=== PATIENT | male | born 1975 | race Two or more races ===

== ENCOUNTER 2018-01-16 23:19 | Inpatient (IN) | payer SELFPAY ==
[~2018-01-16] VITALS: Ht 182.9 cm; Wt 83.9 kg
[2018-01-17] MEDS ORDERED: ASPIRIN 325 MG TABLET PO ONE
[2018-01-17] MEDS ORDERED: NITROGLYCERIN 0.4 MG/TAB BOTTLE SL ONE ×2 (00:13)
[2018-01-17] MEDS ORDERED: ACETAMINOPHEN 325 MG TABLET ONE ×2 (00:13→00:36)
[2018-01-17] MEDS ORDERED: LORAZEPAM 2 MG/1 ML VIAL IV ONE ×2 (00:15→01:15)
--- NOTE | 2018-01-17 00:17 | NUR ---
PT REPORTED BEING FREE OF CHEST PAIN AFTER FIRST ROUND OF NITRO
[2018-01-17] MEDS ORDERED: ASPIRIN 325 MG TABLET ONE (00:18)
[2018-01-17] MEDS ORDERED: NITROGLYCERIN OINT 1 GM PACKET TP ONE (00:21)
[2018-01-17] MEDS ORDERED: LORAZEPAM 2 MG/1 ML VIAL ONE ×2 (00:25→01:16)
[2018-01-17] MEDS ORDERED: ACETAMINOPHEN ES 500 MG TABLET PO ONE (00:30)
[2018-01-17] MEDS ORDERED: hydrALAZINE HCL 20 MG/1 ML VIAL IV ONE ×2 (00:30→01:30)
--- NOTE | 2018-01-17 00:37 | NUR ---
PT IN ROUTE TO CT IN WHEELCHAIR WITH TRANSPORTER
--- NOTE | 2018-01-17 00:42 | NUR ---
PT RETURNS FROM CT IN WHEELCHAIR WITH TRANSPORTER
[2018-01-17 00:49] LABS: BASOPHILS # (AUTO) 0.1 K/uL (0.0-8.0); BASOPHILS % (AUTO) 1.1 % (0.0-2.0); EOSINOPHILS # (AUTO) 0.3 K/uL (0.0-0.7); EOSINOPHILS % (AUTO) 3.2 % (0.0-7.0); HEMATOCRIT 39.8 % (36.7-47.1); HEMOGLOBIN 13.5 g/dL (12.5-16.3); LYMPHOCYTES # (AUTO) 3.1 K/uL (20.0-40.0); LYMPHOCYTES % (AUTO) 36.2 % (20.5-51.5); MEAN CORPUSCULAR HEMOGLOBIN 26.7 uug (23.8-33.4); MEAN CORPUSCULAR HGB CONC 34 g/dL (32.5-36.3); MEAN CORPUSCULAR VOLUME 78.8 fL (73.0-96.2); MONOCYTES # (AUTO) 0.5 K/uL (2.0-10.0); MONOCYTES % (AUTO) 6.3 % (0.0-11.0); NEUTROPHILS # (AUTO) 4.5 K/uL (1.8-8.9); NEUTROPHILS % (AUTO) 53.2 % (38.5-71.5); PLATELET COUNT (AUTO) 254 K/uL (152-348); RED BLOOD CELL COUNT(AUTO) 5.05 MIL/uL (4.06-5.63); WHITE BLOOD COUNT (AUTO) 8.5 K/uL (3.6-10.2)
[2018-01-17] MEDS ORDERED: hydrALAZINE HCL 20 MG/1 ML VIAL ONE (00:51)
[2018-01-17 00:52] LABS: CREATININE 1.3 mg/dL (0.6-1.3); POTASSIUM 3.7 mmol/L (3.5-5.1)
[2018-01-17 00:55] LABS: BILIRUBIN,DIRECT 0.1 mg/dL (0.0-0.2); BILIRUBIN,TOTAL 0.3 mg/dL (0.2-1.0); TOTAL PROTEIN, SERUM 8.1 g/dL (6.4-8.2)
[2018-01-17] MEDS ORDERED: CLONIDINE HCL 0.1 MG TABLET PO ONE (01:15)
[2018-01-17] MEDS ORDERED: CLONIDINE HCL 0.1 MG TABLET ONE (01:16)
--- NOTE | 2018-01-17 01:42 | NUR ---
PT IN BED RESTING QUIETING WITH EYES CLOSED. PT IS EASILY AROUSABLE. PT IS AAOX4. VSS. LUNG SOUNDS ARE CLEAR WITH EVEN UNLABORED BREATH SOUNDS.
--- NOTE | 2018-01-17 03:00 | NUR ---
REPORT GIVEN TO TELEMETRY NURSE, ROSALBA CHAND
[2018-01-17] MEDS ORDERED: MORPHINE SULFATE 2 MG/1 ML DISP.SYRIN IV PRN (03:15)
[2018-01-17] MEDS ORDERED: hydrALAZINE HCL 20 MG/1 ML VIAL IV PRN ×2 (03:15→07:30)
[2018-01-17] MEDS ORDERED: ONDANSETRON 4 MG/2 ML VIAL IV PRN (03:15)
[2018-01-17] MEDS ORDERED: MAGNESIUM HYDROXIDE 30 ML LIQUID UDC PO PRN (03:15)
[2018-01-17] MEDS ORDERED: ACETAMINOPHEN 325 MG TABLET PO PRN (03:15)
[2018-01-17] MEDS ORDERED: Z GUARD REMEDY PASTE 57 GM TUBE TOP PRN (03:15)
[2018-01-17] MEDS ORDERED: HYDROCODONE/APAP 5-325MG TABLET PO PRN (03:15)
--- NOTE | 2018-01-17 03:30 | NUR ---
Pt. admitted to TELEMETRY, under care of LANIE GAN [facility]ongs List completed
[2018-01-17 04:00] VITALS: BP 147/99
--- NOTE | 2018-01-17 04:00 | NUR ---
Received pt in unit and placed on tele monitor noted to be sinus rhythm with HR in the 80's. Pt denies discomfort at this time. Pertinent assessments done. Unit orientation provided. Plan of care verbalized to patient. Safe environment implemented at all times. Call light within reach.
--- NOTE | 2018-01-17 04:43 | NUR ---
Candi jackson in [facility] - 01/17/18 at 0444 by JCGABRIELA Pt. admitted to TELEMERY, under care of LANIE Guardado List completed
[2018-01-17] MEDS ORDERED: CLONIDINE HCL 0.1 MG TABLET PO PRN (08:15)
[2018-01-17] MEDS ORDERED: NITROGLYCERIN 0.4 MG/TAB BOTTLE SL PRN (08:30)
--- NOTE | 2018-01-17 11:23 | NUR ---
WOUND CARE CONSULT: PT PRESENTS WITH LEFT THIGH WOUND WITH INDURATION, PRESENT ON ADMISSION. RECOMMEND SURGICAL CONSULT. PT IS INDEPENDENT WITH BED MOBILITY AND CONTINENT. DISCUSSED WOUND RECOMMENDATIONS WITH NURSING STAFF. WILL SEE PRN. [place] IN AGREEMENT WITH PLAN OF CARE. Addendum: 01/17/18 at 1124 by SHAWN SAUNDERS RN Amended: Links added.
[2018-01-17] MEDS: ASPIRIN 81 MG TAB.CHEW PO SCH (11:25)
[2018-01-17 11:45] VITALS: BP 142/87
[2018-01-17 15:58] VITALS: BP 143/97
[2018-01-17] MEDS ORDERED: hydrALAZINE HCL 25 MG TABLET PO PRN (16:45)
[2018-01-17] MEDS: AMLODIPINE 5 MG TABLET PO SCH (17:29)
--- NOTE | 2018-01-17 19:34 | NUR ---
Patient alert and oriented. no sign of discomfort. stable vital sign and condition.
[2018-01-17 20:00] VITALS: BP 153/93
--- NOTE | 2018-01-17 21:12 | NUR ---
Patient resting in bed. Continue to remain on Strict I and O. No complaints of pain at this time. Patient noted with visitor for the evening. Reminded visitor of hours. Assisted patient in changing gown. Will continue to monitor.
--- NOTE | 2018-01-18 01:41 | NUR ---
Pt appears to be sleeping at this time. No acute distress noted. IV site intact on lower extremity.
[2018-01-18 04:30] VITALS: BP 152/100
[2018-01-18 07:18] LABS: BASOPHILS # (AUTO) 0.1 K/uL (0.0-8.0); BASOPHILS % (AUTO) 0.9 % (0.0-2.0); EOSINOPHILS # (AUTO) 0.3 K/uL (0.0-0.7); EOSINOPHILS % (AUTO) 3.9 % (0.0-7.0); HEMATOCRIT 37.7 % (36.7-47.1); HEMOGLOBIN 12.6 g/dL (12.5-16.3); LYMPHOCYTES # (AUTO) 2.6 K/uL (20.0-40.0); LYMPHOCYTES % (AUTO) 39.9 % (20.5-51.5); MEAN CORPUSCULAR HEMOGLOBIN 26.3 uug (23.8-33.4); MEAN CORPUSCULAR HGB CONC 33 g/dL (32.5-36.3); MEAN CORPUSCULAR VOLUME 78.7 fL (73.0-96.2); MONOCYTES # (AUTO) 0.5 K/uL (2.0-10.0); MONOCYTES % (AUTO) 8.2 % (0.0-11.0); NEUTROPHILS # (AUTO) 3.1 K/uL (1.8-8.9); NEUTROPHILS % (AUTO) 47.1 % (38.5-71.5); PLATELET COUNT (AUTO) 216 K/uL (152-348); RED BLOOD CELL COUNT(AUTO) 4.79 MIL/uL (4.06-5.63); WHITE BLOOD COUNT (AUTO) 6.6 K/uL (3.6-10.2)
[2018-01-18 07:34] LABS: CREATININE 1.1 mg/dL (0.6-1.3); MAGNESIUM 2.1 mg/dL (1.8-2.4); PHOSPHOROUS 3.9 mg/dL (2.5-4.9); POTASSIUM 3.7 mmol/L (3.5-5.1)
[2018-01-18 07:46] LABS: THYROID STIMULATING HORMONE 0.94 mIU/mL (0.358-3.740)
--- NOTE | 2018-01-18 08:00 | NUR ---
AWAKE ALERT COOPERATE WELL NO SOB OR CHEST PAIN RESTING WELL WITH CALL LIGHT IN REACH
[2018-01-18] MEDS: ASPIRIN 81 MG TAB.CHEW PO SCH (08:07)
[2018-01-18] MEDS: AMLODIPINE 5 MG TABLET PO SCH (08:07)
[2018-01-18 11:44] VITALS: BP 164/106
--- NOTE | 2018-01-18 12:00 | NUR ---
AUTO BODY MAN FOR Clary GREER SEEN PATIENT AND ORDER OK TO D/C HOME TODAY WITH PRECRIPTION ,D/C INSTRUCTION GIVEN REGARDING TO F/U WITH OWN PMD CONTINUE MEDICINE ORDER AND EDUCATION PK GIVEN PHAMACY WAS INSTRUCTION ON HOME MEDICATION PRECRIPTION ,VERBALIZES UNDERSTAND AND SIGNS D/C SHEET HL WAS D/C PRIOR D/C HOME TODAY CONDITION STABLE
[2018-01-18 13:00] VITALS: BP 142/100
--- NOTE | 2018-01-18 13:00 | NUR ---
D/C HOME WITH HIS BELONGING CONDITION STABLE NO PAIN OR SOB WOUND CARE INSTRUCTION AND SUPPLY GIVEN AND PICTURE TAKEN PRIOR D/C HOME TODAY
[2018-01-18 14:30] LABS: *AMPHETAMINE, URINE POSITIVE (NEGATIVE); *BARBITURATE, URINE NEGATIVE (NEGATIVE); *CANNABINOID, URINE NEGATIVE (NEGATIVE); *COCCAINE, URINE NEGATIVE (NEGATIVE); *OPIATE, URINE POSITIVE (NEGATIVE); *PHENCYCLIDINE SCREEN,URINE NEGATIVE (NEGATIVE)
[2018-01-18 15:18] LABS: *BILIRUBIN,URIN NEGATIVE (NEGATIVE); *BLOOD, URINE NEGATIVE (NEGATIVE); *CLARITY,URINE CLEAR (CLEAR); *COLOR,URINE YELLOW (YELLOW); *KETONES,URINE NEGATIVE (NEGATIVE); *PROTEIN,URINE NEGATIVE (NEGATIVE); *UROBILINOGEN,URINE 0.2 E.U./dl (NORMAL); LEUKOCYTE ESTERASE ,URINE NEGATIVE (NEGATIVE); NITRITE, URINE NEGATIVE (NEGATIVE); UGLUCOSE NEGATIVE (NEGATIVE)
[2018-01-18 15:25] LABS: WBC,URINE NONE SEEN /HPF (0-3)
== END 2018-01-18 13:00 | disposition home or self-care (01) | DRG 305 ==
LOC: ER 23:23 → TELE 01-17 03:20 → MED 01-17 17:06
PROVIDERS: ADMIT Nurse Practitioner Acute Care; ATTEND Nurse Practitioner Acute Care
DX: I16.1 Hypertensive emergency (principal); L02.416 Cutaneous abscess of left lower limb; F17.210 Nicotine dependence, cigarettes, uncomplicated; Z87.01 Personal history of pneumonia (recurrent); Z91.19 Patient's noncompliance with other medical treatment and regimen; F15.188 Other stimulant abuse with other stimulant-induced disorder; I77.810 Thoracic aortic ectasia; R07.89 Other chest pain; F11.11 Opioid abuse, in remission
CPT/HCPCS: 36415; 70030-TC; 70450; 71045; 80307; 83735; 84100; 84443; 85025; 85730; 93005; 93307; A4663; J0360; J2060; J7030

== ENCOUNTER 2018-04-28 04:15 | Emergency (ER) | payer MEDICAID ==
[~2018-04-28] VITALS: Ht 182.9 cm; Wt 77.1 kg
[2018-04-28] MEDS ORDERED: ONDANSETRON ODT 4 MG TAB.RAPDIS SL ONE (04:45)
[2018-04-28] MEDS ORDERED: HYDROCODONE/APAP 10-325 MG TABLET PO ONE (04:45)
--- NOTE | 2018-04-28 05:17 | NUR ---
Patient discharged to home in stable conditon. Written and verbal after care instructions given. Patient verbalizes understanding of instructions.
[2018-04-28] MEDS ORDERED: ONDANSETRON ODT 4 MG TAB.RAPDIS ONE (05:39)
[2018-04-28] MEDS ORDERED: HYDROCODONE/APAP 10-325 MG TABLET ONE (05:39)
== END 2018-04-28 05:17 | disposition home or self-care (01) ==
LOC: ER 04:18
DX: S97.81XA Crushing injury of right foot, initial encounter (principal); I10 Essential (primary) hypertension; W23.0XXA Caught, crushed, jammed, or pinched between moving objects, initial encounter; Y93.89 Activity, other specified; Y92.89 Other specified places as the place of occurrence of the external cause; Y99.8 Other external cause status
CPT/HCPCS: 73630; A4663; Q0162

== ENCOUNTER 2019-07-13 21:05 | Emergency (ER) | payer MEDICAID ==
[~2019-07-13] VITALS: Ht 182.9 cm; Wt 81.6 kg
[2019-07-13] MEDS ORDERED: SULFAMETH/TRIMETH 800/160 MG TABLET PO ONE (22:00)
[2019-07-13] MEDS ORDERED: SULFAMETH/TRIMETH 800/160 MG TABLET ONE (22:02)
--- NOTE | 2019-07-13 22:04 | NUR ---
Patient discharged to home in stable conditon. Written and verbal after care instructions given. Patient verbalizes understanding of instructions. Pt walked out of ER in stable gait. Pt's abscess was I&D by Dr. Portillo. No drainage. Placed dressing. Pt given 1st dose of bactrim antibiotic oral.
[2019-07-13 22:06] VITALS: BP 161/92
== END 2019-07-13 22:06 | disposition home or self-care (01) ==
LOC: ER 21:05
DX: L03.114 Cellulitis of left upper limb (principal); I10 Essential (primary) hypertension; F11.10 Opioid abuse, uncomplicated
CPT/HCPCS: A4663

== ENCOUNTER 2019-12-13 13:46 | Emergency (ER) | payer MEDICAID ==
[~2019-12-13] VITALS: Ht 182.9 cm; Wt 81.6 kg
[2019-12-13] MEDS ORDERED: LIDOCAINE HCL 2% 20 ML VIAL ONE (14:15)
[2019-12-13] MEDS ORDERED: SULFAMETH/TRIMETH 800/160 MG TABLET PO ONE (14:30)
[2019-12-13] MEDS ORDERED: LIDOCAINE HCL 2% 20 ML VIAL TP ONE (14:30)
[2019-12-13] MEDS ORDERED: SULFAMETH/TRIMETH 800/160 MG TABLET ONE (14:31)
--- NOTE | 2019-12-13 14:35 | NUR ---
PT WAS EVALUATED BY DR EAGLE. PT WAS D/C'd TO HOME. D/C INSTRUCTIONS GIVEN TO THE PT BY DR EAGLE.
[2019-12-13 14:36] VITALS: BP 138/89
== END 2019-12-13 14:37 | disposition home or self-care (01) ==
LOC: ER 13:52
DX: L02.414 Cutaneous abscess of left upper limb (principal); L02.413 Cutaneous abscess of right upper limb; I10 Essential (primary) hypertension
CPT/HCPCS: 10160 ×2; 99283; J3490; A4663

== ENCOUNTER 2020-01-20 14:28 | Emergency (ER) | payer MEDICAID ==
[~2020-01-20] VITALS: Ht 182.9 cm; Wt 90.7 kg
--- NOTE | 2020-01-20 14:40 | NUR ---
PT IS IN ROOM #2B. DR SOTELO EVALUATED THE PT.
[2020-01-20] MEDS ORDERED: LIDOCAINE HCL 2% 20 ML VIAL ONE (14:45)
[2020-01-20] MEDS ORDERED: CEFAZOLIN 1 G VIAL IM ONE (15:00)
[2020-01-20] MEDS ORDERED: CEphaleXIN 500 MG CAPSULE PO ONE (15:00)
[2020-01-20] MEDS ORDERED: TDAP DIPH,PERTUSS,TET VAC/PF 0.5 ML DISP.SYRIN IM ONE ×2 (15:15→15:18)
[2020-01-20] MEDS ORDERED: CEFAZOLIN 1 G VIAL ONE (15:17)
[2020-01-20] MEDS ORDERED: CEphaleXIN 500 MG CAPSULE ONE (15:18)
--- NOTE | 2020-01-20 15:54 | NUR ---
pt was d/c'D to home by dr garcia. d/c instructions given to the pt by dr garcia.
[2020-01-20 15:55] VITALS: BP 143/78
== END 2020-01-20 15:56 | disposition home or self-care (01) ==
LOC: ER 14:28
DX: L02.31 Cutaneous abscess of buttock (principal); I10 Essential (primary) hypertension; S31.813S Puncture wound without foreign body of right buttock, sequela; S31.823S Puncture wound without foreign body of left buttock, sequela; X78.8XXS Intentional self-harm by other sharp object, sequela; F17.210 Nicotine dependence, cigarettes, uncomplicated; Z87.01 Personal history of pneumonia (recurrent)
CPT/HCPCS: 10060; 76882; 90471; 90715; 96372; 99284; 99406; J0690; J3490; A4217; A4663

== ENCOUNTER 2020-02-22 19:41 | Emergency (ER) | payer MEDICAID ==
[~2020-02-22] VITALS: Ht 182.9 cm; Wt 88.6 kg
--- NOTE | 2020-02-22 20:28 | NUR ---
at bedside for MSE
--- NOTE | 2020-02-22 21:02 | NUR ---
Right wrist flaccid, patient states it has been that way since 10 am of today, aware
--- NOTE | 2020-02-22 21:50 | NUR ---
Patient noted resting in bed with eyes closed at this time, no signs of distress, no complaints of pain
--- NOTE | 2020-02-22 22:05 | NUR ---
Camryn's splint applied to right wrist with Jose Enrique bandage at this time
[2020-02-22] MEDS ORDERED: SULFAMETH/TRIMETH 800/160 MG TABLET ONE (22:55)
--- NOTE | 2020-02-22 23:06 | NUR ---
Patient discharged to home in stable condition. Noted ambulating in steady manner, took all belongings, Written and verbal after care instructions given. Patient verbalizes understanding of instructions. Stressed follow up or return to ER for worsening s/s.
[2020-02-22 23:09] VITALS: BP 138/86
[2020-02-22] MEDS: SULFAMETH/TRIMETH 800/160 MG TABLET PO ONE (23:30)
== END 2020-02-22 23:06 | disposition home or self-care (01) ==
LOC: ER 19:46
DX: G56.31 Lesion of radial nerve, right upper limb (principal); L03.116 Cellulitis of left lower limb; Z86.73 Personal history of transient ischemic attack (TIA), and cerebral infarction without residual deficits; F17.200 Nicotine dependence, unspecified, uncomplicated; I10 Essential (primary) hypertension; Z87.01 Personal history of pneumonia (recurrent)
CPT/HCPCS: 70450; A4663

== ENCOUNTER 2022-05-25 23:48 | Emergency (ER) | payer MEDICAID ==
[~2022-05-25] VITALS: Ht 182.9 cm; Wt 90.7 kg
--- NOTE | 2022-05-26 00:39 | NUR ---
Dr. Grant at bedside for MSE.
[2022-05-26] MEDS ORDERED: LIDOCAINE 1%-EPI 1:100,000 20 ML VIAL IJ ONE (00:45)
[2022-05-26] MEDS ORDERED: KETOROLAC TROMETHAMINE 30 MG INJ IM ONE (00:45)
[2022-05-26] MEDS ORDERED: LIDOCAINE 2%-EPI 1:100,000 20 ML VIAL ONE (00:48)
[2022-05-26] MEDS ORDERED: KETOROLAC TROMETHAMINE 30 MG INJ ONE (00:51)
[2022-05-26] MEDS ORDERED: CLIN300C12 PO ×2 (01:21→04:22)
[2022-05-26] MEDS ORDERED: HYDROCODONE/APAP 5-325MG TABLET ONE (01:28)
[2022-05-26] MEDS ORDERED: CLINDAMYCIN HCL 300 MG CAPSULE ONE (01:28)
[2022-05-26] MEDS ORDERED: CLINDAMYCIN HCL 150 MG CAPSULE PO ONE (01:30)
[2022-05-26] MEDS ORDERED: HYDROCODONE/APAP 5-325MG TABLET PO ONE (01:30)
--- NOTE | 2022-05-26 01:39 | NUR ---
Patient discharged to home in stable condition. Written and verbal after care instructions given. Patient verbalizes understanding of instructions. Stressed follow up or return to ER for worsening s/s. Patient out of ER with steady gait, no acute signs of distress, VSS, all belongings taken.
[2022-05-26 01:40] VITALS: BP 148/100
== END 2022-05-26 01:40 | disposition home or self-care (01) ==
LOC: ER 05-26
DX: L02.511 Cutaneous abscess of right hand (principal); L02.415 Cutaneous abscess of right lower limb; R00.0 Tachycardia, unspecified; F19.90 Other psychoactive substance use, unspecified, uncomplicated; F17.210 Nicotine dependence, cigarettes, uncomplicated; F11.90 Opioid use, unspecified, uncomplicated
CPT/HCPCS: 99284; 10061; 76536; 76882; 96372; J1885; A4663